=== PATIENT | male | born 1965 | race Caucasian/White ===

== ENCOUNTER 2020-12-13 14:23 | Inpatient (IN) | payer BC, OTHER ==
[~2020-12-13] VITALS: Ht 177.8 cm; Wt 81.9 kg
[2020-12-13] MEDS ORDERED: FENTANYL PF 100 MCG/2ML ONE ×2 (14:27→15:35)
[2020-12-13] MEDS ORDERED: MIDAZOLAM 1 MG/ML, 5ML ONE (14:28)
[2020-12-13] MEDS ORDERED: HEPARIN 1,000 UNITS/ML, 10ML ONE (14:28)
[2020-12-13] MEDS ORDERED: VERAPAMIL 2.5 MG/ML, 2ML ONE (14:28)
[2020-12-13] MEDS ORDERED: BIVALIRUDIN 250 MG ONE ×3 (14:28→16:37)
[2020-12-13] MEDS ORDERED: LIDOCAINE 2%, 20ML ONE (14:28)
[2020-12-13] MEDS ORDERED: TICAGRELOR 90 MG TABLET ONE (14:28)
[2020-12-13] MEDS ORDERED: SODIUM CHLORIDE FLUSH 10ML SYR IVF PRN (14:30)
[2020-12-13] MEDS ORDERED: SODIUM CHLORIDE FLUSH 10ML SYR IVF ONE (14:30)
--- NOTE | 2020-12-13 14:30 | NUR ---
ACTIVE ANTERIOR [place]. PT FELT STRANGE AND OVERLY TIRED W/ MID BACK PAIN. WENT TO AND WAS FOUND TO BE HAVING AN [place]. PAIN STARTED AT 0430. FAMILY HX CARDIAC ISSUES. DENIES CO, SOB. NITRO HELD SECONDARY TO HOTN. GIVEN ASA AT [facility]. DR. JEFFRIES AT BEDSIDE DISCUSSING CARDIAC PIG STICKER PROCEDURE W/ PT. PT VERBALIZES UNDERSTANDING. CONSENT SIGNED.
--- NOTE | 2020-12-13 14:33 | NUR ---
[facility] S[facility] KALINA. PT TO [facility] VIA YUMIKO Slade APPROPRIATE MEDICAL STAFF AT THIS TIME.
--- NOTE | 2020-12-13 14:33 | NUR ---
CODE CARDIAC PAGED @ 1413. DR. JEFFRIES,PEDIATRIC OPHTHALMOLOGIST, CALLED AND AWARE OF CODE CARDIAC @ 1414. THREADING MACHINE TENDER CALLED AND AWARE OF CODE CARDIAC @ 1415. PT ARRIVED VIA EMS @ 1425. DR. JEFFRIES AT BEDSIDE @1425. THREADING MACHINE TENDER CALLED AND READY @ 1430. PT TRANSPORTED TO THREADING MACHINE TENDER @ 1435.
[2020-12-13 14:36] LABS: BASOPHILS % (AUTO) 0 % (0-1); EOSINOPHILS % (AUTO) 0 % (1-7); LYMPHOCYTES % (AUTO) 9 % (22-44); MEAN CORPUSCULAR HEMOGLOBIN 28.4 pg (27.5-34.5); MEAN CORPUSCULAR HGB CONC 32.7 g/dL (33.2-36.2); MEAN PLATELET VOLUME 9.6 fL (7.4-10.4); MONOCYTES % (AUTO) 4 % (2-9); NEUTROPHILS % (AUTO) 86 % (42-75); PLATELET COUNT 232 x10^3/uL (130-400)
--- NOTE | 2020-12-13 14:38 | NUR ---
PT TRANSPORTED TO [employer]ASS PRODUCTION MACHINE OPERATOR W/ THIS RN, SURGERY TECHNICIAN, ZOLL MONITOR, GALINA CCU RN AND DAIRY SUPPLIES SALES REPRESENTATIVE DR. JEFFRIES. REPORT GIVEN TO DEREK CARDIAC GLASS PRODUCTION MACHINE OPERATOR RN. ALL QUESTIONS ANSWERED.
[2020-12-13 14:47] LABS: ALANINE AMINOTRANSFERASE 43 U/L (12-78); ALBUMIN 3.8 g/dL (3.4-5.0); ANION GAP 5 mmol/L (5-15); CALCIUM 9.2 mg/dL (8.5-10.1); CHLORIDE 105 mmol/L (98-107); CREATININE 1.39 mg/dL (0.7-1.3)
[2020-12-13] MEDS ORDERED: hydrALAzine 20 MG/ML, 1ML ONE (14:49)
[2020-12-13] MEDS ORDERED: METOPROLOL 1 MG/ML, 5ML ONE ×3 (14:49→15:05)
[2020-12-13 14:52] LABS: ALKALINE PHOSPHATASE 90 U/L (45-117); BILIRUBIN,TOTAL 0.4 mg/dL (0.2-1.0); TOTAL PROTEIN 7.7 g/dL (6.4-8.2)
[2020-12-13] MEDS ORDERED: SYNTHROID PEG (14:54)
[2020-12-13] MEDS ORDERED: NITROGLYCERIN 0.4 MG/SPRAY SL PRN (15:00)
[2020-12-13] MEDS ORDERED: BISACODYL 10 MG SUPP PR PRN (15:00)
[2020-12-13] MEDS ORDERED: ONDANSETRON 2MG/ML, 2ML IVPush PRN (15:00)
[2020-12-13] MEDS ORDERED: ACETAMINOPHEN 325 MG TABLET PO PRN (15:00)
[2020-12-13 15:13] LABS: MD NO
[2020-12-13] MEDS ORDERED: MIDAZOLAM 1 MG/ML, 2ML ONE (15:35)
[2020-12-13] MEDS ORDERED: DIPHENHYDRAMINE 50 MG/ML, 1ML ONE (15:46)
[2020-12-13] MEDS ORDERED: BIVALIRUDIN 250 MG in SODIUM CHLORIDE 0.9% 50 ML IV SCH (16:30)
[2020-12-13] MEDS ORDERED: SODIUM CHLORIDE 0.9% 1,000 ML IV SCH (16:30)
[2020-12-13] MEDS: morphine SULFATE 10 MG/ML, 1ML IVPush PRN ×2 (17:02→17:33)
[2020-12-13 17:11] VITALS: BP 95/72
[2020-12-13 17:12] VITALS: BP 95/72
[2020-12-13] MEDS ORDERED: LEVO100C4 PO (17:42)
[2020-12-13] MEDS: CARVEDILOL 6.25 MG TABLET PO SCH (18:29)
[2020-12-13] MEDS ORDERED: AZITHROMYCIN 500 MG TABLET ONE (19:45)
[2020-12-13] MEDS: TICAGRELOR 90 MG TABLET PO SCH (19:47)
[2020-12-13] MEDS: COLCHICINE 0.6 MG CAPSULE PO SCH (19:47)
[2020-12-13] MEDS: ATORVASTATIN 80 MG TABLET PO SCH (19:47)
[2020-12-13] MEDS ORDERED: CEFTRIAXONE PMX 1GM/50ML 50 ML IV ONE (20:00)
[2020-12-13] MEDS ORDERED: AZITHROMYCIN 500 MG TABLET PO ONE (20:00)
[2020-12-14 04:57] LABS: ANION GAP 7 mmol/L (5-15); CALCIUM 8.4 mg/dL (8.5-10.1); CHLORIDE 106 mmol/L (98-107)
[2020-12-14 05:20] LABS: CHOL/HDL RATIO 6.2; CHOLESTEROL, TOTAL 186 mg/dL (140-239); CREATININE 1.06 mg/dL (0.7-1.3); HDL CHOL % 16 % (26-37); HDL CHOLESTEROL (DIRECT) 30 mg/dL (40-60); LDL CHOLESTEROL,CALCULATED 135 mg/dL (54-169); LDL/HDL RATIO 4.5 (0.5-3.0); TRIGLYCERIDES 104 mg/dL (50-200); VLDL CHOLESTEROL 21 mg/dL (0-25)
[2020-12-14] MEDS: TICAGRELOR 90 MG TABLET PO SCH ×2 (08:04→19:42)
[2020-12-14] MEDS: LEVOTHYROXINE 100 MCG TABLET PO SCH (08:04)
[2020-12-14] MEDS: CARVEDILOL 6.25 MG TABLET PO SCH ×2 (08:04→17:39)
[2020-12-14] MEDS: ASPIRIN 81 MG TABLET EC PO SCH (08:04)
[2020-12-14] MEDS: COLCHICINE 0.6 MG CAPSULE PO SCH ×2 (08:04→19:42)
[2020-12-14] MEDS ORDERED: POTASSIUM CHLORIDE 20 MEQ TAB.ER.PRT PO ONE (09:00)
[2020-12-14] MEDS ORDERED: FUROSEMIDE 20 MG/2 ML IV ONE (09:00)
[2020-12-14] MEDS: LISINOPRIL 5 MG TABLET PO SCH (09:02)
[2020-12-14] MEDS ORDERED: FUROSEMIDE 20 MG/2 ML ONE (09:04)
[2020-12-14] MEDS ORDERED: POTASSIUM CHLORIDE 20 MEQ TAB.ER.PRT ONE (09:04)
[2020-12-14 10:57] LABS: BASOPHILS % (AUTO) 0 % (0-1); EOSINOPHILS % (AUTO) 0 % (1-7); LYMPHOCYTES % (AUTO) 6 % (22-44); MEAN CORPUSCULAR HEMOGLOBIN 28.5 pg (27.5-34.5); MEAN CORPUSCULAR HGB CONC 33.2 g/dL (33.2-36.2); MEAN PLATELET VOLUME 10.1 fL (7.4-10.4); MONOCYTES % (AUTO) 9 % (2-9); NEUTROPHILS % (AUTO) 85 % (42-75); PLATELET COUNT 199 x10^3/uL (130-400); RED BLOOD COUNT 5.59 x10^6/uL (4.38-5.82); RED CELL DISTRIBUTION WIDTH 14.9 % (9.4-14.8)
[2020-12-14 11:31] LABS: MD SCAN
[2020-12-14 13:35] VITALS: BP 107/79
[2020-12-14 17:40] VITALS: BP 108/79
[2020-12-14 19:22] VITALS: BP 101/70
[2020-12-14] MEDS: ATORVASTATIN 80 MG TABLET PO SCH (19:42)
[2020-12-14] MEDS: ZOLPIDEM 5MG TABLET PO PRN (22:39)
[2020-12-15 01:26] VITALS: BP 111/82
[2020-12-15 05:53] VITALS: BP 110/79
[2020-12-15] MEDS: LEVOTHYROXINE 100 MCG TABLET PO SCH (05:54)
[2020-12-15] MEDS: CARVEDILOL 6.25 MG TABLET PO SCH ×2 (05:54→17:07)
[2020-12-15 06:06] LABS: ANION GAP 5 mmol/L (5-15); CALCIUM 8.4 mg/dL (8.5-10.1); CHLORIDE 106 mmol/L (98-107); CREATININE 1.01 mg/dL (0.7-1.3)
[2020-12-15 08:25] VITALS: BP 110/79
[2020-12-15] MEDS: TICAGRELOR 90 MG TABLET PO SCH ×2 (08:32→20:22)
[2020-12-15] MEDS: COLCHICINE 0.6 MG CAPSULE PO SCH ×2 (08:33→20:22)
[2020-12-15] MEDS: LISINOPRIL 5 MG TABLET PO SCH (08:33)
[2020-12-15] MEDS: ASPIRIN 81 MG TABLET EC PO SCH (08:33)
[2020-12-15] MEDS: SPIRONOLACTONE 25 MG TABLET PO SCH (09:28)
[2020-12-15 15:16] VITALS: BP 119/87
[2020-12-15 17:05] VITALS: BP 107/79
[2020-12-15 20:20] VITALS: BP 105/64
[2020-12-15] MEDS: ATORVASTATIN 80 MG TABLET PO SCH (20:22)
[2020-12-15] MEDS: ZOLPIDEM 5MG TABLET PO PRN (21:28)
[2020-12-16 05:54] VITALS: BP 118/87
[2020-12-16 06:32] LABS: ANION GAP 7 mmol/L (5-15); CALCIUM 8.8 mg/dL (8.5-10.1); CHLORIDE 107 mmol/L (98-107); CREATININE 1.15 mg/dL (0.7-1.3)
[2020-12-16 07:38] VITALS: BP 120/89
[2020-12-16] MEDS: TICAGRELOR 90 MG TABLET PO SCH (08:00)
[2020-12-16] MEDS: COLCHICINE 0.6 MG CAPSULE PO SCH (08:00)
[2020-12-16] MEDS: LISINOPRIL 5 MG TABLET PO SCH (08:00)
[2020-12-16] MEDS: SPIRONOLACTONE 25 MG TABLET PO SCH (08:00)
[2020-12-16] MEDS: ASPIRIN 81 MG TABLET EC PO SCH (08:01)
[2020-12-16] MEDS: LEVOTHYROXINE 100 MCG TABLET PO SCH (08:01)
[2020-12-16] MEDS: CARVEDILOL 6.25 MG TABLET PO SCH (08:01)
[2020-12-16] MEDS ORDERED: NITR0.4T28 SL (08:36)
[2020-12-16] MEDS ORDERED: SPIR25TA PO (08:36)
[2020-12-16] MEDS ORDERED: COLC0.6C3 PO (08:36)
[2020-12-16] MEDS ORDERED: ASPI81TA45 PO (08:36)
[2020-12-16] MEDS ORDERED: LISI5TAB7 PO (08:36)
[2020-12-16] MEDS ORDERED: TICA90TA PO (08:36)
[2020-12-16] MEDS ORDERED: CARV6.2512 PO (08:36)
[2020-12-16] MEDS ORDERED: ATOR-2 PO (08:36)
== END 2020-12-16 12:30 | disposition home or self-care (01) | DRG 246 ==
LOC: ED 14:29 → EDIP 14:30 → CCU 16:48 → 5SO 12-14 13:26 → DCLOUNGE 12-16 12:05
PROVIDERS: ADMIT Internal Medicine Cardiovascular Disease; ATTEND Internal Medicine
PROC: 027137Z Dilation of Coronary Artery, Two Arteries with Four or More Drug-eluting Intraluminal Devices, Percutaneous Approach (ICD-10-PCS; principal; 2020-12-13)
PROC: B2101ZZ Fluoroscopy of Single Coronary Artery using Low Osmolar Contrast (ICD-10-PCS; 2020-12-13)
PROC: B240ZZ3 Ultrasonography of Single Coronary Artery, Intravascular (ICD-10-PCS; 2020-12-13)
DX: I21.09 ST elevation (STEMI) myocardial infarction involving other coronary artery of anterior wall (principal); I50.41 Acute combined systolic (congestive) and diastolic (congestive) heart failure; I47.2 Ventricular tachycardia; E03.9 Hypothyroidism, unspecified; E78.5 Hyperlipidemia, unspecified; I11.0 Hypertensive heart disease with heart failure; I25.10 Atherosclerotic heart disease of native coronary artery without angina pectoris; Z20.822 Contact with and (suspected) exposure to COVID-19; R73.01 Impaired fasting glucose; I25.5 Ischemic cardiomyopathy; N28.9 Disorder of kidney and ureter, unspecified; I25.2 Old myocardial infarction; Z82.49 Family history of ischemic heart disease and other diseases of the circulatory system; Z87.891 Personal history of nicotine dependence; Z95.5 Presence of coronary angioplasty implant and graft
CPT/HCPCS: 36415; 92978; 93454; 99285; C8929; C9600; C9601; J3490; 71045; 80047; 80048; 80053; 80061; 83036; 84443; 84484; 85025; 87081; 87635; 93005; 99156; 99157; C1753; C1760; C1769; C1894; G0378; J0583; J0696; J1644; J2250; J2405; J3010; Q9957; C1725; C1757; C1874; C1887; J0360; J1200; J1940; J2270; J7030; Q9967

== ENCOUNTER 2021-01-04 12:38 | Emergency (ER) | payer BC, OTHER ==
[~2021-01-04] VITALS: Ht 177.8 cm; Wt 78.8 kg
[~2021-01-04 12:38] MED LIST: ASPI81TA45 PO; ATOR-2 PO; CARV6.2512 PO; COLC0.6C3 PO; LEVO100C4 PO; LISI5TAB7 PO; NITR0.4T28 SL; SPIR25TA PO; SYNTHROID PEG; TICA90TA PO
--- NOTE | 2021-01-04 12:59 | NUR ---
PT TO ROOM 4 W/ C/O R SHOULDER DISLOCATION. PT STATES HE AWOKE THIS AM W/ SHOULDER DISLOCATED. CMS INTACT. NO DEFORMITY NOTED. PT RESTING ON [facility]. NADN. CALDER[place].
--- NOTE | 2021-01-04 13:35 | NUR ---
PT RESTING ON GURNEY. NADN. CALDERA.
[2021-01-04 14:31] VITALS: BP 127/87
--- NOTE | 2021-01-04 14:32 | NUR ---
PT RESTING ON GURNEY. NADN. CALDERA.
== END 2021-01-04 14:58 | disposition home or self-care (01) ==
LOC: ED 13:58
DX: M25.511 Pain in right shoulder (principal)
CPT/HCPCS: 99283

== ENCOUNTER 2021-02-08 23:28 | Observation (INO) | payer BC ==
[~2021-02-08] VITALS: Ht 177.8 cm; Wt 79.4 kg
--- NOTE | 2021-02-09 00:11 | NUR ---
Pt to ER with c/o having high blood pressure at home, and developing left neck pain for the last hour. Pt with recent OK and concerned, and wanted to be evaluated. Pt to room, EKG done. Pt on monitor. Warm blanket given. at bedside. Will monitor.
[2021-02-09 00:24] LABS: BASOPHILS % (AUTO) 1 % (0-1); EOSINOPHILS % (AUTO) 5 % (1-7); LYMPHOCYTES % (AUTO) 22 % (22-44); MEAN CORPUSCULAR HEMOGLOBIN 28.8 pg (27.5-34.5); MEAN CORPUSCULAR HGB CONC 33.6 g/dL (33.2-36.2); MEAN PLATELET VOLUME 9.6 fL (7.4-10.4); MONOCYTES % (AUTO) 10 % (2-9); NEUTROPHILS % (AUTO) 61 % (42-75); PLATELET COUNT 250 x10^3/uL (130-400); RED BLOOD COUNT 4.84 x10^6/uL (4.38-5.82); RED CELL DISTRIBUTION WIDTH 16.2 % (9.4-14.8)
[2021-02-09 00:31] LABS: MD NO
--- NOTE | 2021-02-09 00:33 | NUR ---
Pt calm in bed, states doing fine. Labs sent, cxr done. Will continue to monitor, at bedside. Call light in reach.
[2021-02-09 00:35] LABS: ALBUMIN 3.5 g/dL (3.4-5.0); ANION GAP 4 mmol/L (5-15); CALCIUM 8.8 mg/dL (8.5-10.1); CHLORIDE 107 mmol/L (98-107); CREATININE 0.98 mg/dL (0.7-1.3)
[2021-02-09 00:38] LABS: TROPONIN I 0.077 ng/mL (0.000-0.045)
[2021-02-09] MEDS ORDERED: metoprolol ER PO (02:11)
[2021-02-09] MEDS ORDERED: LISI-170 PO (02:11)
--- NOTE | 2021-02-09 02:32 | NUR ---
Report called to Charles DE LEON. Pt calm, stable VS, no changes. Pt with no complaints at this time. Pt ready for transport.
[2021-02-09] MEDS ORDERED: morphine SULFATE 10 MG/ML, 1ML IVPush PRN (03:00)
[2021-02-09] MEDS ORDERED: ONDANSETRON 2MG/ML, 2ML IVPush PRN (03:00)
[2021-02-09] MEDS ORDERED: LABETALOL 5MG/ML, 20ML IVPush PRN (03:00)
[2021-02-09] MEDS ORDERED: ACETAMINOPHEN 325 MG TABLET PO PRN (03:00)
[2021-02-09 03:03] VITALS: BP 118/80
[2021-02-09 05:12] LABS: CHOL/HDL RATIO 4.4
[2021-02-09 05:19] LABS: TROPONIN I 0.096 ng/mL (0.000-0.045)
[2021-02-09] MEDS ORDERED: LEVOTHYROXINE 100 MCG TABLET PO SCH (06:00)
[2021-02-09] MEDS ORDERED: METOPROLOL SUCCINATE 25 MG TAB.ER.24H PO SCH (06:00)
[2021-02-09 06:52] VITALS: BP 124/84
[2021-02-09] MEDS ORDERED: REGADENOSON 0.4 MG/5 ML SYRINGE ONE ×2 (07:34→11:07)
[2021-02-09] MEDS ORDERED: LISINOPRIL 10 MG TABLET PO SCH (09:00)
[2021-02-09] MEDS ORDERED: ASPIRIN 81 MG TABLET EC PO SCH (09:00)
[2021-02-09] MEDS ORDERED: SPIRONOLACTONE 25 MG TABLET PO SCH (09:00)
[2021-02-09] MEDS ORDERED: TICAGRELOR 90 MG TABLET PO SCH (09:00)
[2021-02-09 10:29] LABS: TROPONIN I 0.099 ng/mL (0.000-0.045)
[2021-02-09 12:35] VITALS: BP 120/86
[2021-02-09] MEDS ORDERED: LISI-167 PO (16:33)
[2021-02-09] MEDS ORDERED: CLOP75TA52 PO (16:33)
[2021-02-09] MEDS ORDERED: APIX5TAB PO (16:33)
[2021-02-09] MEDS ORDERED: FURO-93 PO (16:54)
[2021-02-09] MEDS ORDERED: ATORVASTATIN 80 MG TABLET PO SCH (21:00)
== END 2021-02-09 17:29 | disposition home or self-care (01) ==
LOC: ED 02-09 02:06 → INTOOBSV 02-09 02:11 → EDIP 02-09 02:11 → 5SO 02-09 02:59 → UNDODISIN 02-09 17:29
PROVIDERS: ADMIT Family Medicine; ATTEND Hospitalist
DX: I51.3 Intracardiac thrombosis, not elsewhere classified (principal); M54.2 Cervicalgia; R79.89 Other specified abnormal findings of blood chemistry; I24.9 Acute ischemic heart disease, unspecified; I25.10 Atherosclerotic heart disease of native coronary artery without angina pectoris; I25.5 Ischemic cardiomyopathy; I21.4 Non-ST elevation (NSTEMI) myocardial infarction; I11.0 Hypertensive heart disease with heart failure; I50.42 Chronic combined systolic (congestive) and diastolic (congestive) heart failure; E78.5 Hyperlipidemia, unspecified; E03.9 Hypothyroidism, unspecified; I25.2 Old myocardial infarction; Z79.82 Long term (current) use of aspirin; Z79.899 Other long term (current) drug therapy; Z79.01 Long term (current) use of anticoagulants; M85.80 Other specified disorders of bone density and structure, unspecified site
CPT/HCPCS: 36415; 71045; 80048; 80061; 82040; 83880; 84443; 84484; 85025; 93005; 93306; 99285; G0378; J2785